=== PATIENT | female | born 1955 | race Caucasian/White ===

== ENCOUNTER 2017-01-27 07:34 | Emergency (ER) | payer BC, OTHER ==
[2017-01-27 07:52] VITALS: BP 137/81
[2017-01-27] MEDS ORDERED: Tetracaine HCl/PF 0.5% 4 ML Bottle EYELF ONE (08:07)
[2017-01-27] MEDS ORDERED: Fluorescein 1 MG Ophth Strip EYELF ONE (08:07)
[2017-01-27] MEDS ORDERED: Balanced Salt Solution Ophth Irrig 30 ML Bottle EYELF ONE (08:07)
--- NOTE | 2017-01-27 08:09 | EDM.PDOC ---
ED HPI GENERAL MEDICAL PROBLEM - General Chief Complaint: Eye Problems Stated Complaint: LEFT EYE COMPLAINT Time Seen by Provider: 01/27/17 08:04 Source of Information: Reports: Patient History Limitations: Reports: No Limitations - History of Present Illness INITIAL COMMENTS - FREE TEXT/NARRATIVE: 61 yo white female Onset Date: 01/26/17 Onset Time: 12:00 Duration: Day(s):, Getting Worse Quality: Reports: Burning Severity: Moderate Improves with: Reports: Cold Therapy Context: Reports: Activity Associated Symptoms: Reports: No Other Symptoms Left Eye Pain Score (Numeric/FACES): 3 - Related Data Allergies Allergy/AdvReac Type Severity Reaction Status Date / Time No Known Allergies Allergy Verified 01/27/17 07:55 Home Meds: Home Meds Levothyroxine 75 mcg PO DAILY 01/27/17 [History] Metoprolol Succinate [Toprol XL] 50 mcg PO DAILY 01/27/17 [History] Simvastatin [Simvastatin] 20 mg PO DAILY 01/27/17 [History] Past Medical History Cardiovascular History: Reports: High Cholesterol, Hypertension Musculoskeletal History: Reports: Fracture Endocrine/Metabolic History: Reports: Hypothyroidism - Past Surgical History Musculoskeletal Surgical History: Reports: Other (See Below) Other Musculoskeletal Surgeries/Procedures:: Fx ankle and femur Oncologic Surgical History: Reports: Biopsy of Breast, Lumpectomy Social & Family History - Tobacco Use Smoking Status *Q: Never Smoker - Caffeine Use Caffeine Use: Reports: Coffee, Soda - Recreational Drug Use Recreational Drug Use: No ED ROS GENERAL - Review of Systems Review Of Systems: See Below Constitutional: Reports: No Symptoms HEENT: Reports: Eye Pain (left w/ scratch sensation) Respiratory: Reports: No Symptoms Cardiovascular: Reports: No Symptoms Endocrine: Reports: No Symptoms GI/Abdominal: Reports: No Symptoms : Reports: No Symptoms Musculoskeletal: Reports: No Symptoms Skin: Reports: No Symptoms Neurological: Reports: No Symptoms Psychiatric: Reports: No Symptoms Hematologic/Lymphatic: Reports: No Symptoms Immunologic: Reports: No Symptoms ED EXAM GENERAL W FULL EYE - Physical Exam Exam: See Below Exam Limited By: No Limitations General Appearance: Alert Eye Exam: Left Eye: Corneal Abrasion (at 6'oclock) Eyelids: Bilateral: Normal Appearance Conjunctiva & Sclera: Bilateral: Normal Appearance Cornea Exam: Left: Corneal Abrasion (at 6'oclock), Examined with Flourescein Extraocular Movements: Bilateral: Intact Pupils: Normal Accommodation Pupillary Size: Bilateral: 4 mm Pupillary Reaction: Bilateral: Brisk Anterior Chamber: Bilateral: Normal Appearance Posterior Chamber: Bilateral: Normal Funduscopic Ears: Normal External Exam Nose: Normal Inspection Throat/Mouth: Normal Inspection Head: Atraumatic Neck: Normal Inspection Respiratory/Chest: No Respiratory Distress Cardiovascular: Normal Peripheral Pulses GI/Abdominal: Normal Bowel Sounds Extremities: Normal Inspection Neurological: Alert, Oriented, CN II-XII Intact Psychiatric: Normal Affect, Normal Mood Skin Exam: Warm Lymphatic: No Adenopathy ED EYE w/ Add Procedure - Eye Procedure Alcaine Drops Administered: Yes Eye Irrigated w/ Saline (ccs): 5 Course - Vital Signs Last Recorded V/S: Last Vital Signs Temp 36.1 C 01/27/17 07:51 Pulse 62 01/27/17 07:51 Resp 16 01/27/17 07:51 BP 137/81 01/27/17 07:51 Pulse Ox 98 01/27/17 07:51 Departure - Departure Time of Disposition: 08:21 Disposition: Home, Self-Care 01 Condition: Good Clinical Impression: Corneal abrasion Qualifiers: Encounter type: initial encounter Laterality: left Qualified Code(s): S05.02XA - Injury of conjunctiva and corneal abrasion without foreign body, left eye, initial encounter - Discharge Information Forms: ED Department Discharge Additional Instructions: Use the antibiotic eye drops as prescribed QID ( Garamycin opthal soln) 5cc
== END 2017-01-27 08:35 | disposition home or self-care (01) ==
LOC: DL.ED 07:34
DX: S05.02XA Injury of conjunctiva and corneal abrasion without foreign body, left eye, initial encounter (principal); I10 Essential (primary) hypertension; E78.00 Pure hypercholesterolemia, unspecified; E03.9 Hypothyroidism, unspecified; Z98.890 Other specified postprocedural states; Z79.899 Other long term (current) drug therapy; X58.XXXA Exposure to other specified factors, initial encounter
CPT/HCPCS: 99282; A9270

== ENCOUNTER 2020-08-28 15:07 | Observation (INO) | payer MEDICARE, OTHER ==
--- NOTE | 2020-08-28 15:43 | CT ---
PROCEDURE INFORMATION: Exam: CT Head Without Contrast Exam date and time: 08/28/2020 3:32 PM Age: 64 years old Clinical indication: Other: Neuro changes TECHNIQUE: Imaging protocol: Computed tomography of the head without contrast. Radiation optimization: All CT scans at this facility use at least one of these dose optimization techniques: automated exposure control; mA and/or kV adjustment per patient size (includes targeted exams where dose is matched to clinical indication); or iterative reconstruction. Other technique: STROKE PROTOCOL was implemented. COMPARISON: No relevant prior studies available. FINDINGS: Brain: There is moderate amount of scattered areas of hypoattenuation of the supratentorial white matter, most likely secondary to microvascular ischemic changes. No acute intracranial hemorrhage. Cerebral ventricles: No ventriculomegaly. Bones/joints: Unremarkable. No acute fracture. Paranasal sinuses: Visualized sinuses are unremarkable. No fluid levels. Mastoid air cells: Visualized mastoid air cells are well aerated. Soft tissues: Unremarkable. IMPRESSION: No acute intracranial process. ASSESSMENT: ASPECTS (Karyn Stroke Program Early CT Score) is 10.
[2020-08-28 15:50] LABS: ANION GAP 13.6 mEq/L (7-13); CHLORIDE,CL 102 mmol/L (98-107); SODIUM,NA 142 mmol/L (136-145)
--- NOTE | 2020-08-28 15:50 | EDM.PDOC ---
ED HPI GENERAL MEDICAL PROBLEM - General Chief Complaint: Neuro Symptoms/Deficits Stated Complaint: LOSING MEMORY STARTING TODAY, HEADACHE Time Seen by Provider: 08/28/20 15:24 Source of Information: Reports: Patient, RN, RN Notes Reviewed History Limitations: Reports: No Limitations - History of Present Illness INITIAL COMMENTS - FREE TEXT/NARRATIVE: Patient is a 64-year-old female who presents TO ER with complaint loss of memory. Last known well was 12:30 today. Patient states she went to [employer] and remembers up until eating at [employer] at 12:30. States she lost approximately 3 hours today. States she was having difficulty with simple processes today. States she is feeling much better now. She has never had COVID and she had vaccine #1 on 07/20/20. She has been i gregg at [facility] for c-spine discs "slipping". On Saturday she had diarrhea. Onset: Today Duration: Getting Worse Location: Reports: Generalized Severity: Moderate Improves with: Reports: None Worsens with: Reports: None Associated Symptoms: Reports: No Other Symptoms - Related Data Allergies Allergy/AdvReac Type Severity Reaction Status Date / Time No Known Allergies Allergy Verified 08/28/20 15:25 Home Meds: Home Meds Levothyroxine 75 mcg PO DAILY 01/27/17 [History] Metoprolol Succinate [Toprol XL] 50 mg PO DAILY 01/27/17 [History] Simvastatin 20 mg PO DAILY 01/27/17 [History] Past Medical History Cardiovascular History: Reports: High Cholesterol, Hypertension Musculoskeletal History: Reports: Fracture (left femur age 10yrs), Other (See Below) (scoliosis) Endocrine/Metabolic History: Reports: Hypothyroidism - Past Surgical History Endocrine Surgical History: Reports: Thyroidectomy Musculoskeletal Surgical History: Reports: Other (See Below) Other Musculoskeletal Surgeries/Procedures:: Fx ankle and femur Oncologic Surgical History: Reports: Biopsy of Breast, Lumpectomy Social & Family History - Family History Family Medical History: No Pertinent Family History - Caffeine Use Caffeine Use: Reports: Coffee, Soda - Living Situation & Occupation Living situation: Reports: with Family ED ROS GENERAL - Review of Systems Review Of Systems: Comprehensive ROS is negative, except as noted in HPI. ED EXAM, GENERAL - Physical Exam Exam: See Below Exam Limited By: No Limitations General Appearance: Anxious Eye Exam: Bilateral Eye: EOMI, Normal Inspection, PERRL Ears: Normal External Exam, Normal Canal, Hearing Grossly Normal, Normal TMs Nose: Normal Inspection, Normal Mucosa, No Blood Throat/Mouth: Normal Inspection, Normal Lips, Normal Teeth, Normal Gums, Normal Oropharynx, Normal Voice, No Airway Compromise Head: Atraumatic, Normocephalic Neck: Normal Inspection, Supple, Non-Tender, Full Range of Motion Respiratory/Chest: No Respiratory Distress, Lungs Clear, Normal Breath Sounds, No Accessory Muscle Use, Chest Non-Tender Cardiovascular: Normal Peripheral Pulses, Regular Rate, Rhythm, No Edema, No Gallop, No JVD, No Murmur, No Rub GI/Abdominal: Normal Bowel Sounds, Soft, Non-Tender, No Organomegaly, No Distention, No Abnormal Bruit, No Mass (Female) Exam: Deferred Rectal (Female) Exam: Deferred Back Exam: Normal Inspection, Full Range of Motion, NT Extremities: Normal Inspection, Normal Range of Motion, Non-Tender, Normal Capillary Refill, No Pedal Edema Neurological: Alert, Oriented, CN II-XII Intact, Normal Cognition, Normal Gait, Normal Reflexes, No Motor/Sensory Deficits Psychiatric: Anxious Skin Exam: Warm, Dry, Intact, Normal Color, No Rash Lymphatic: No Adenopathy Course - Vital Signs Last Recorded V/S: Last Vital Signs Temp 97.2 F 08/28/20 15:16 Pulse 68 08/28/20 15:16 Resp 16 08/28/20 15:16 BP 186/93 H 08/28/20 15:20 Pulse Ox 98 08/28/20 15:16 - Orders/Labs/Meds Orders: Active Orders 24 hr Category Date Time Status CULTURE URINE [RM] Stat Lab 08/28/20 15:41 Received Labs: Laboratory Tests 08/28/20 08/28/20 08/28/20 Range/Units 15:17 15:18 15:18 WBC 8.2 (5.0-10.0) 10^3/uL RBC 4.87 (4.2-5.4) 10^6/uL Hgb 14.5 (12.0-16.0) g/dL Hct 41.9 (37.0-47.0) % MCV 86.0 (80-100) fL MCH 29.8 (27.0-34.0) pg MCHC 34.6 (33.0-35.0) g/dL Plt Count 283 (150-450) 10^3/uL Neut % (Auto) 62.9 (42.2-75.2) % Lymph % (Auto) 24.6 (20.5-50.1) % [place] % (Auto) 8.9 H (2-8) % Eos % (Auto) 2.9 (1.0-3.0) % Baso % (Auto) 0.7 (0.0-1.0) % PT (9.0-12.0) SEC INR (0.9-1.2) Sodium 142 (136-145) mmol/L Potassium 3.6 (3.5-5.1) mmol/L Chloride 102 (98-107) mmol/L Carbon Dioxide 30 (21-32) mmol/L Anion Gap 13.6 H (7-13) mEq/L BUN 14 (7-18) mg/dL Creatinine 0.82 (0.55-1.02) mg/dL Est Cr Clr Drug Dosing 65.63 mL/min Estimated GFR (MDRD) > 60 BUN/Creatinine Ratio 17.1 (No establ ref range) Glucose 93 (74-99) mg/dL POC Glucose 98 (70-105) mg/dl Calcium 9.1 (8.5-10.1) mg/dL Total Bilirubin 0.5 (0.2-1.0) mg/dL AST 22 (15-37) U/L ALT 42 (14-59) U/L Alkaline Phosphatase 117 H (46-116) U/L Troponin I < 0.017 (0.000-0.056) ng/mL Total Protein 7.4 (6.4-8.2) g/dL Albumin 3.8 (3.4-5.0) g/dL Globulin 3.6 Albumin/Globulin Ratio 1.1 Urine Color (YELLOW) Urine Appearance (CLEAR) Urine pH (5.0-9.0) Ur Specific [place] (1.005-1.030) Urine Protein (NEGATIVE) Urine Glucose (UA) (NEGATIVE) Urine Ketones (NEGATIVE) Urine Occult Blood (NEGATIVE) Urine Nitrite (NEGATIVE) Urine Bilirubin (NEGATIVE) Urine Urobilinogen (0.2-1.0) mg/dL Ur Leukocyte Esterase (NEGATIVE) Urine RBC /HPF Urine WBC (0-5/HPF) /HPF Ur Epithelial Cells (NOT SEEN) /HPF Urine Bacteria (0-FEW/HPF) /HPF Urine Mucus (NOT SEEN) /LPF Urine Opiates Screen (NEGATIVE) Ur Oxycodone Screen (NEGATIVE) Urine Methadone Screen (NEGATIVE) Ur Barbiturates Screen (NEGATIVE) U Tricyclic Antidepress (NEGATIVE) Ur Phencyclidine Scrn (NEGATIVE) Ur Amphetamine Screen (NEGATIVE) U Methamphetamines Scrn (NEGATIVE) Urine MDMA Screen (NEGATIVE) U Benzodiazepines Scrn (NEGATIVE) Urine Cocaine Screen (NEGATIVE) U Marijuana (THC) Screen (NEGATIVE) Ethyl Alcohol < 3 (0) mg/dL SARS-CoV-2 RNA (ILIA) (NEGATIVE) 08/28/20 08/28/20 08/28/20 Range/Units 15:18 15:41 15:41 WBC (5.0-10.0) 10^3/uL RBC (4.2-5.4) 10^6/uL Hgb (12.0-16.0) g/dL Hct (37.0-47.0) % MCV (80-100) fL MCH (27.0-34.0) pg MCHC (33.0-35.0) g/dL Plt Count (150-450) 10^3/uL Neut % (Auto) (42.2-75.2) % Lymph % (Auto) (20.5-50.1) % [place] % (Auto) (2-8) % Eos % (Auto) (1.0-3.0) % Baso % (Auto) (0.0-1.0) % PT 10.2 (9.0-12.0) SEC INR 1.1 (0.9-1.2) Sodium (136-145) mmol/L Potassium (3.5-5.1) mmol/L Chloride (98-107) mmol/L Carbon Dioxide (21-32) mmol/L Anion Gap (7-13) mEq/L BUN (7-18) mg/dL Creatinine (0.55-1.02) mg/dL Est Cr Clr Drug Dosing mL/min Estimated GFR (MDRD) BUN/Creatinine Ratio (No establ ref range) Glucose (74-99) mg/dL POC Glucose (70-105) mg/dl Calcium (8.5-10.1) mg/dL Total Bilirubin (0.2-1.0) mg/dL AST (15-37) U/L ALT (14-59) U/L Alkaline Phosphatase (46-116) U/L Troponin I (0.000-0.056) ng/mL Total Protein (6.4-8.2) g/dL Albumin (3.4-5.0) g/dL Globulin Albumin/Globulin Ratio Urine Color Yellow (YELLOW) Urine Appearance Slightly cloudy (CLEAR) Urine pH 7.0 (5.0-9.0) Ur Specific [place] 1.020 (1.005-1.030) Urine Protein Negative (NEGATIVE) Urine Glucose (UA) Negative (NEGATIVE) Urine Ketones Negative (NEGATIVE) Urine Occult Blood Trace-intact H (NEGATIVE) Urine Nitrite Negative (NEGATIVE) Urine Bilirubin Negative (NEGATIVE) Urine Urobilinogen 0.2 (0.2-1.0) mg/dL Ur Leukocyte Esterase Trace H (NEGATIVE) Urine RBC 5-10 H /HPF Urine WBC 5-10 H (0-5/HPF) /HPF Ur Epithelial Cells Few (NOT SEEN) /HPF Urine Bacteria Few (0-FEW/HPF) /HPF Urine Mucus Few H (NOT SEEN) /LPF Urine Opiates Screen Negative (NEGATIVE) Ur Oxycodone Screen Negative (NEGATIVE) Urine Methadone Screen Negative (NEGATIVE) Ur Barbiturates Screen Negative (NEGATIVE) U Tricyclic Antidepress Negative (NEGATIVE) Ur Phencyclidine Scrn Negative (NEGATIVE) Ur Amphetamine Screen Negative (NEGATIVE) U Methamphetamines Scrn Negative (NEGATIVE) Urine MDMA Screen Negative (NEGATIVE) U Benzodiazepines Scrn Negative (NEGATIVE) Urine Cocaine Screen Negative (NEGATIVE) U Marijuana (THC) Screen Negative (NEGATIVE) Ethyl Alcohol (0) mg/dL SARS-CoV-2 RNA (ILIA) (NEGATIVE) 08/28/20 08/28/20 Range/Units 15:41 15:44 WBC (5.0-10.0) 10^3/uL RBC (4.2-5.4) 10^6/uL Hgb (12.0-16.0) g/dL Hct (37.0-47.0) % MCV (80-100) fL MCH (27.0-34.0) pg MCHC (33.0-35.0) g/dL Plt Count (150-450) 10^3/uL Neut % (Auto) (42.2-75.2) % Lymph % (Auto) (20.5-50.1) % [place] % (Auto) (2-8) % Eos % (Auto) (1.0-3.0) % Baso % (Auto) (0.0-1.0) % PT (9.0-12.0) SEC INR (0.9-1.2) Sodium (136-145) mmol/L Potassium (3.5-5.1) mmol/L Chloride (98-107) mmol/L Carbon Dioxide (21-32) mmol/L Anion Gap (7-13) mEq/L BUN (7-18) mg/dL Creatinine (0.55-1.02) mg/dL Est Cr Clr Drug Dosing mL/min Estimated GFR (MDRD) BUN/Creatinine Ratio (No establ ref range) Glucose (74-99) mg/dL POC Glucose 99 (70-105) mg/dl Calcium (8.5-10.1) mg/dL Total Bilirubin (0.2-1.0) mg/dL AST (15-37) U/L ALT (14-59) U/L Alkaline Phosphatase (46-116) U/L Troponin I (0.000-0.056) ng/mL Total Protein (6.4-8.2) g/dL Albumin (3.4-5.0) g/dL Globulin Albumin/Globulin Ratio Urine Color (YELLOW) Urine Appearance (CLEAR) Urine pH (5.0-9.0) Ur Specific [employer] [place] (1.005-1.030) Urine Protein (NEGATIVE) Urine Glucose (UA) (NEGATIVE) Urine Ketones (NEGATIVE) Urine Occult Blood (NEGATIVE) Urine Nitrite (NEGATIVE) Urine Bilirubin (NEGATIVE) Urine Urobilinogen (0.2-1.0) mg/dL Ur Leukocyte Esterase (NEGATIVE) Urine RBC /HPF Urine WBC (0-5/HPF) /HPF Ur Epithelial Cells (NOT SEEN) /HPF Urine Bacteria (0-FEW/HPF) /HPF Urine Mucus (NOT SEEN) /LPF Urine Opiates Screen (NEGATIVE) Ur Oxycodone Screen (NEGATIVE) Urine Methadone Screen (NEGATIVE) Ur Barbiturates Screen (NEGATIVE) U Tricyclic Antidepress (NEGATIVE) Ur Phencyclidine Scrn (NEGATIVE) Ur Amphetamine Screen (NEGATIVE) U Methamphetamines Scrn (NEGATIVE) Urine MDMA Screen (NEGATIVE) U Benzodiazepines Scrn (NEGATIVE) Urine Cocaine Screen (NEGATIVE) U Marijuana (THC) Screen (NEGATIVE) Ethyl Alcohol (0) mg/dL SARS-CoV-2 RNA (ILIA) Negative (NEGATIVE) Meds: Medications Discontinued Medications Generic Name Dose Route Start Last Admin Trade Name Candelario PRN Reason Stop Dose Admin Labetalol HCl 10 mg 08/28/20 17:01 08/28/20 17:07 Normodyne IVPUSH 08/28/20 17:02 10 mg ONETIME ONE Administration - Radiology Interpretation Free Text/Narrative:: CT Head: CT Head: PROCEDURE INFORMATION: Exam: CT Head Without Contrast Exam date and time: 08/28/2020 3:32 PM Age: 64 years old Clinical indication: Other: Neuro changes TECHNIQUE: Imaging protocol: Computed tomography of the head without contrast. Radiation optimization: All CT scans at this facility use at least one of these dose optimization techniques: automated exposure control; mA and/or kV adjustment per patient size (includes targeted exams where dose is matched to clinical indication); or iterative reconstruction. Other technique: STROKE PROTOCOL was implemented. COMPARISON: No relevant prior studies available. FINDINGS: Brain: There is moderate amount of scattered areas of hypoattenuation of the supratentorial white matter, most likely secondary to microvascular ischemic changes. No acute intracranial hemorrhage. Cerebral ventricles: No ventriculomegaly. Bones/joints: Unremarkable. No acute fracture. Paranasal sinuses: Visualized sinuses are unremarkable. No fluid levels. Mastoid air cells: Visualized mastoid air cells are well aerated. Soft tissues: Unremarkable. IMPRESSION: No acute intracranial process. ASSESSMENT: ASPECTS (Karyn Stroke Program Early CT Score) is 10. See rad report. - Re-Assessments/Exams Free Text/Narrative Re-Assessment/Exam: 08/28/20 18:14 Discussed patient case with Dr. Howe, Neurologist at [facility], who states she feels this is Global or Hypertension encephalopathy. She states the patient can be evaluated in [place] and have an MRI tomorrow. Discussed patient case with Dr. Fernandez as well as conversation with Dr. Howe. He agreed to accept the patient for observation admission. Departure - Departure Time of Disposition: 18:15 Disposition: Refer to Observation Condition: Fair Clinical Impression: Global amnesia - Discharge Information *PRESCRIPTION DRUG MONITORING PROGRAM REVIEWED*: No *COPY OF PRESCRIPTION DRUG MONITORING REPORT IN PATIENT RANI: No Sepsis Event Note (ED) - Evaluation Sepsis Screening Result: No Definite Risk - Focused Exam Vital Signs: Vital Signs Temp Pulse Resp BP Pulse Ox 08/28/20 15:20 186/93 H 08/28/20 15:16 97.2 F 68 16 191/92 H 98 - My Orders Last 24 Hours: My Active Orders 08/28/20 15:41 CULTURE URINE [RM] Stat - Assessment/Plan Last 24 Hours: My Active Orders 08/28/20 15:41 CULTURE URINE [RM] Stat
[2020-08-28] MEDS ORDERED: Labetalol 20 MG/4 ML Syringe IVPUSH ONE (17:01)
--- NOTE | 2020-08-28 18:30 | PCM.HP ---
H&P History of Present Illness - General Date of Service: 08/28/20 Admit Problem/Dx: Admission Diagnosis/Problem Admission Diagnosis/Problem Hypertension complications Source of Information: Patient, Family History Limitations: Reports: No Limitations - History of Present Illness Initial Comments - Free Text/Narative: Patient is a 64-year-old female with a medical history of hypothyroidism, hypertension, dyslipidemia, recent cervical anterolisthesis who presented with memory loss. Patient reports that she was her usual self this morning when she went to quaker, letter Bible study, and played the organ. At around 12:30 PM she ate at [employer] before going home. Later this afternoon, patient relates that she could not remember about 3 hours of heart the statin from after she left [employer]. She also had difficulty with comprehending what she was reading or seeing well even with her glasses. She complained of having a headache which is achy and parieto-occipital in location. She thinks the headache was due to receiving physical therapy for for her neck pain. She now feels well still cannot account for about 3 hours of today. She reported having 2 episodes of loose stools on Saturday which she thought was due to something she ate. In the ER, patient was found to have elevated blood pressure of 191/92 with a heart rate of 68. Other vital signs were normal. She was given labetalol for the blood pressure slowly decreased. Labs were significant for anion gap of 13.4, trace leukocyte esterase with few bacteria in urinalysis. CT of the brain had no acute findings. - Related Data Allergies/Adverse Reactions: Allergies Allergy/AdvReac Type Severity Reaction Status Date / Time No Known Allergies Allergy Verified 08/28/20 15:25 Home Medications: Home Meds Levothyroxine 75 mcg PO DAILY 01/27/17 [History] Metoprolol Succinate [Toprol XL] 50 mg PO DAILY 01/27/17 [History] Simvastatin 20 mg PO DAILY 01/27/17 [History] Past Medical History Cardiovascular History: Reports: High Cholesterol, Hypertension Musculoskeletal History: Reports: Fracture, Other (See Below) Endocrine/Metabolic History: Reports: Hypothyroidism - Past Surgical History Endocrine Surgical History: Reports: Thyroidectomy Social & Family History - Family History Family Medical History: No Pertinent Family History - Tobacco Use Used Tobacco, but Quit: No - Caffeine Use Caffeine Use: Reports: Coffee - Recreational Drug Use Recreational Drug Use: No - Living Situation & Occupation Living situation: Reports: with Family H&P Review of Systems - Review of Systems: Review Of Systems: See Below General: Reports: No Symptoms HEENT: Reports: Headaches, Visual Changes Pulmonary: Reports: No Symptoms Cardiovascular: Reports: No Symptoms Gastrointestinal: Reports: No Symptoms Genitourinary: Reports: No Symptoms Musculoskeletal: Reports: No Symptoms Skin: Reports: No Symptoms Psychiatric: Reports: Confusion Neurological: Reports: Confusion, Headache. Denies: Dizziness Hematologic/Lymphatic: Reports: No Symptoms Immunologic: Reports: No Symptoms Exam - Exam Exam: See Below - Vital Signs Vital Signs: Last Vital Signs Temp 97.2 F 08/28/20 15:16 Pulse 68 08/28/20 15:16 Resp 16 08/28/20 15:16 BP 186/93 H 08/28/20 15:20 Pulse Ox 98 08/28/20 15:16 Weight: 180 lb - Exam General: Alert, Oriented, 4 HEENT: PERRLA, Hearing Intact, Mucosa Moist & [place], Nares Patent, Normal Nasal Septum, Posterior Pharynx Clear, Conjunctiva Clear, EOMI, EACs Clear, TMs Clear Neck: Supple, Trachea Midline, 2 Lungs: Clear to Auscultation, Normal Respiratory Effort Cardiovascular: Regular Rate, Regular Rhythm GI/Abdominal Exam: Normal Bowel Sounds, Soft, Non-Tender, No Organomegaly, No Distention, No Abnormal Bruit, No Mass, Pelvis Stable Back Exam: Normal Inspection, Full Range of Motion, NT Extremities: Normal Inspection, Normal Range of Motion, Non-Tender, No Pedal Edema, Normal Capillary Refill Skin: Warm, Dry, Intact Neurological: Cranial Nerves Intact, Reflexes Equal Bilateral Neuro Extensive - Mental Status: Alert, Oriented x3, Normal Mood/Affect, Normal Cognition Neuro Extensive - Motor, Sensory, Reflexes: CN II-XII Intact, Normal Gait, Normal Reflexes Psychiatric: Alert, Normal Affect, Normal Mood - Patient Data Lab Results Last 24 hrs: Laboratory Results - last 24 hr 08/28/20 08/28/20 08/28/20 Range/Units 15:17 15:18 15:18 WBC 8.2 (5.0-10.0) 10^3/uL RBC 4.87 (4.2-5.4) 10^6/uL Hgb 14.5 (12.0-16.0) g/dL Hct 41.9 (37.0-47.0) % MCV 86.0 (80-100) fL MCH 29.8 (27.0-34.0) pg MCHC 34.6 (33.0-35.0) g/dL Plt Count 283 (150-450) 10^3/uL Neut % (Auto) 62.9 (42.2-75.2) % Lymph % (Auto) 24.6 (20.5-50.1) % [place] % (Auto) 8.9 H (2-8) % Eos % (Auto) 2.9 (1.0-3.0) % Baso % (Auto) 0.7 (0.0-1.0) % PT (9.0-12.0) SEC INR (0.9-1.2) Sodium 142 (136-145) mmol/L Potassium 3.6 (3.5-5.1) mmol/L Chloride 102 (98-107) mmol/L Carbon Dioxide 30 (21-32) mmol/L Anion Gap 13.6 H (7-13) mEq/L BUN 14 (7-18) mg/dL Creatinine 0.82 (0.55-1.02) mg/dL Est Cr Clr Drug Dosing 65.63 mL/min Estimated GFR (MDRD) > 60 BUN/Creatinine Ratio 17.1 (No establ ref range) Glucose 93 (74-99) mg/dL POC Glucose 98 (70-105) mg/dl Calcium 9.1 (8.5-10.1) mg/dL Total Bilirubin 0.5 (0.2-1.0) mg/dL AST 22 (15-37) U/L ALT 42 (14-59) U/L Alkaline Phosphatase 117 H (46-116) U/L Troponin I < 0.017 (0.000-0.056) ng/mL Total Protein 7.4 (6.4-8.2) g/dL Albumin 3.8 (3.4-5.0) g/dL Globulin 3.6 Albumin/Globulin Ratio 1.1 Urine Color (YELLOW) Urine Appearance (CLEAR) Urine pH (5.0-9.0) Ur Specific [place] (1.005-1.030) Urine Protein (NEGATIVE) Urine Glucose (UA) (NEGATIVE) Urine Ketones (NEGATIVE) Urine Occult Blood (NEGATIVE) Urine Nitrite (NEGATIVE) Urine Bilirubin (NEGATIVE) Urine Urobilinogen (0.2-1.0) mg/dL Ur Leukocyte Esterase (NEGATIVE) Urine RBC /HPF Urine WBC (0-5/HPF) /HPF Ur Epithelial Cells (NOT SEEN) /HPF Urine Bacteria (0-FEW/HPF) /HPF Urine Mucus (NOT SEEN) /LPF Urine Opiates Screen (NEGATIVE) Ur Oxycodone Screen (NEGATIVE) Urine Methadone Screen (NEGATIVE) Ur Barbiturates Screen (NEGATIVE) U Tricyclic Antidepress (NEGATIVE) Ur Phencyclidine Scrn (NEGATIVE) Ur Amphetamine Screen (NEGATIVE) U Methamphetamines Scrn (NEGATIVE) Urine MDMA Screen (NEGATIVE) U Benzodiazepines Scrn (NEGATIVE) Urine Cocaine Screen (NEGATIVE) U Marijuana (THC) Screen (NEGATIVE) Ethyl Alcohol < 3 (0) mg/dL SARS-CoV-2 RNA (ILIA) (NEGATIVE) 08/28/20 08/28/20 08/28/20 Range/Units 15:18 15:41 15:41 WBC (5.0-10.0) 10^3/uL RBC (4.2-5.4) 10^6/uL Hgb (12.0-16.0) g/dL Hct (37.0-47.0) % MCV (80-100) fL MCH (27.0-34.0) pg MCHC (33.0-35.0) g/dL Plt Count (150-450) 10^3/uL Neut % (Auto) (42.2-75.2) % Lymph % (Auto) (20.5-50.1) % [place] % (Auto) (2-8) % Eos % (Auto) (1.0-3.0) % Baso % (Auto) (0.0-1.0) % PT 10.2 (9.0-12.0) SEC INR 1.1 (0.9-1.2) Sodium (136-145) mmol/L Potassium (3.5-5.1) mmol/L Chloride (98-107) mmol/L Carbon Dioxide (21-32) mmol/L Anion Gap (7-13) mEq/L BUN (7-18) mg/dL Creatinine (0.55-1.02) mg/dL Est Cr Clr Drug Dosing mL/min Estimated GFR (MDRD) BUN/Creatinine Ratio (No establ ref range) Glucose (74-99) mg/dL POC Glucose (70-105) mg/dl Calcium (8.5-10.1) mg/dL Total Bilirubin (0.2-1.0) mg/dL AST (15-37) U/L ALT (14-59) U/L Alkaline Phosphatase (46-116) U/L Troponin I (0.000-0.056) ng/mL Total Protein (6.4-8.2) g/dL Albumin (3.4-5.0) g/dL Globulin Albumin/Globulin Ratio Urine Color Yellow (YELLOW) Urine Appearance Slightly cloudy (CLEAR) Urine pH 7.0 (5.0-9.0) Ur Specific [place] 1.020 (1.005-1.030) Urine Protein Negative (NEGATIVE) Urine Glucose (UA) Negative (NEGATIVE) Urine Ketones Negative (NEGATIVE) Urine Occult Blood Trace-intact H (NEGATIVE) Urine Nitrite Negative (NEGATIVE) Urine Bilirubin Negative (NEGATIVE) Urine Urobilinogen 0.2 (0.2-1.0) mg/dL Ur Leukocyte Esterase Trace H (NEGATIVE) Urine RBC 5-10 H /HPF Urine WBC 5-10 H (0-5/HPF) /HPF Ur Epithelial Cells Few (NOT SEEN) /HPF Urine Bacteria Few (0-FEW/HPF) /HPF Urine Mucus Few H (NOT SEEN) /LPF Urine Opiates Screen Negative (NEGATIVE) Ur Oxycodone Screen Negative (NEGATIVE) Urine Methadone Screen Negative (NEGATIVE) Ur Barbiturates Screen Negative (NEGATIVE) U Tricyclic Antidepress Negative (NEGATIVE) Ur Phencyclidine Scrn Negative (NEGATIVE) Ur Amphetamine Screen Negative (NEGATIVE) U Methamphetamines Scrn Negative (NEGATIVE) Urine MDMA Screen Negative (NEGATIVE) U Benzodiazepines Scrn Negative (NEGATIVE) Urine Cocaine Screen Negative (NEGATIVE) U Marijuana (THC) Screen Negative (NEGATIVE) Ethyl Alcohol (0) mg/dL SARS-CoV-2 RNA (ILIA) (NEGATIVE) 08/28/20 08/28/20 Range/Units 15:41 15:44 WBC (5.0-10.0) 10^3/uL RBC (4.2-5.4) 10^6/uL Hgb (12.0-16.0) g/dL Hct (37.0-47.0) % MCV (80-100) fL MCH (27.0-34.0) pg MCHC (33.0-35.0) g/dL Plt Count (150-450) 10^3/uL Neut % (Auto) (42.2-75.2) % Lymph % (Auto) (20.5-50.1) % [place] % (Auto) (2-8) % Eos % (Auto) (1.0-3.0) % Baso % (Auto) (0.0-1.0) % PT (9.0-12.0) SEC INR (0.9-1.2) Sodium (136-145) mmol/L Potassium (3.5-5.1) mmol/L Chloride (98-107) mmol/L Carbon Dioxide (21-32) mmol/L Anion Gap (7-13) mEq/L BUN (7-18) mg/dL Creatinine (0.55-1.02) mg/dL Est Cr Clr Drug Dosing mL/min Estimated GFR (MDRD) BUN/Creatinine Ratio (No establ ref range) Glucose (74-99) mg/dL POC Glucose 99 (70-105) mg/dl Calcium (8.5-10.1) mg/dL Total Bilirubin (0.2-1.0) mg/dL AST (15-37) U/L ALT (14-59) U/L Alkaline Phosphatase (46-116) U/L Troponin I (0.000-0.056) ng/mL Total Protein (6.4-8.2) g/dL Albumin (3.4-5.0) g/dL Globulin Albumin/Globulin Ratio Urine Color (YELLOW) Urine Appearance (CLEAR) Urine pH (5.0-9.0) Ur Specific [place] (1.005-1.030) Urine Protein (NEGATIVE) Urine Glucose (UA) (NEGATIVE) Urine Ketones (NEGATIVE) Urine Occult Blood (NEGATIVE) Urine Nitrite (NEGATIVE) Urine Bilirubin (NEGATIVE) Urine Urobilinogen (0.2-1.0) mg/dL Ur Leukocyte Esterase (NEGATIVE) Urine RBC /HPF Urine WBC (0-5/HPF) /HPF Ur Epithelial Cells (NOT SEEN) /HPF Urine Bacteria (0-FEW/HPF) /HPF Urine Mucus (NOT SEEN) /LPF Urine Opiates Screen (NEGATIVE) Ur Oxycodone Screen (NEGATIVE) Urine Methadone Screen (NEGATIVE) Ur Barbiturates Screen (NEGATIVE) U Tricyclic Antidepress (NEGATIVE) Ur Phencyclidine Scrn (NEGATIVE) Ur Amphetamine Screen (NEGATIVE) U Methamphetamines Scrn (NEGATIVE) Urine MDMA Screen (NEGATIVE) U Benzodiazepines Scrn (NEGATIVE) Urine Cocaine Screen (NEGATIVE) U Marijuana (THC) Screen (NEGATIVE) Ethyl Alcohol (0) mg/dL SARS-CoV-2 RNA (ILIA) Negative (NEGATIVE) Result Diagrams: 08/28/20 15:18 08/28/20 15:18 Problem List Initiated/Reviewed/Updated: Yes Orders Last 24hrs: Active Orders 24 hr Category Date Time Status Admission Diagnosis [ADT] Routine ADT 08/28/20 17:51 Ordered Patient Status [ADT] Routine ADT 08/28/20 17:51 Active Cardiac Monitoring [RC] CONTINUOUS Care 08/28/20 18:27 Ordered Oxygen Therapy [RC] PRN Care 08/28/20 18:27 Ordered Up ad [place] [RC] ASDIRECTED Care 08/28/20 18:27 Ordered VTE/DVT Education [RC] PER UNIT ROUTINE Care 08/28/20 18:27 Ordered Vital Signs [RC] Q4H Care 08/28/20 18:27 Ordered Regular Diet [DIET] Diet 08/28/20 Dinner Ordered CULTURE URINE [RM] Stat Lab 08/28/20 15:41 Received Heparin Sodium Med 08/28/20 22:00 Ordered 5,000 units SUBCUT Q8HR Levothyroxine Med 08/29/20 09:00 Ordered 75 mcg PO DAILY Metoprolol Succinate [Toprol XL] Med 08/29/20 09:00 Ordered 50 mg PO DAILY Simvastatin [Simvastatin] Med 08/29/20 09:00 Ordered 20 mg PO DAILY Resuscitation Status Routine Resus Stat 08/28/20 18:27 Ordered Medication Orders Heparin Sodium (Porcine) (Heparin Sodium) 5,000 units SUBCUT Q8HR HANNA Levothyroxine Sodium (Levothyroxine) 75 mcg PO DAILY HANNA Metoprolol Succinate (Toprol Xl) 50 mg PO DAILY HANNA Non-Formulary Medication (Simvastatin [Simvastatin]) 20 mg PO DAILY [facility] Assessment/Plan Comment:: Hypertensive emergency Resume home hypertensive Checked TSH level -within normal limits Close monitoring of blood pressure Acute encephalopathy Differentials include TIA, hypertensive encephalopathy or transient global a mnesia. Likely due to hypertensive emergency. CT head without any acute intracranial findings. Symptoms have resolved. ER PA had called neurology who thought patient likely had hypertensive encepha lopathy. Obtain MRI of brain tomorrow EKG without acute ST changes Telemetry Obtain cardiac echo tomorrow Consider discharge with Zio patch monitor Hyperlipidemia Resume home statin therapy Hypothyroidism Resume home Synthroid Neck pain Cervical DDD X-ray on 08/10 showed grade 1 anterolisthesis of C4 on C5 and C5 on C6 with minimal anterolisthesis of C6 on C7. Severe cervical facet arthritis. Small osteophyte. Mildly narrowed C5 interspace. No fractures. As needed analgesics Asymptomatic bacteriuria No treatment DVT prophylaxis: Heparin CODE STATUS: Full code
[2020-08-28] MEDS: Acetaminophen 325 MG Tab PO PRN (20:08)
[2020-08-28] MEDS: Heparin Sodium 5,000 Units/ML Vial SUBCUT SCH (21:51)
[2020-08-29] MEDS ORDERED: Sodium Chloride 0.9% 10 ML Syringe FLUSH SCH (04:00)
[2020-08-29] MEDS: Acetaminophen 325 MG Tab PO PRN (04:50)
[2020-08-29] MEDS ORDERED: Sodium Chloride 0.9% 10 ML Syringe FLUSH PRN (04:56)
[2020-08-29] MEDS: Heparin Sodium 5,000 Units/ML Vial SUBCUT SCH (05:59)
[2020-08-29 06:21] LABS: ANION GAP 10.6 mEq/L (7-13); CHLORIDE,CL 105 mmol/L (98-107); SODIUM,NA 142 mmol/L (136-145)
[2020-08-29] MEDS: Metoprolol Succinate 50 MG Tab.ER PO SCH ×2 (07:30→08:10)
[2020-08-29] MEDS: Simvastatin 10 MG Tab PO SCH ×2 (07:30→08:10)
[2020-08-29] MEDS: Levothyroxine 75 MCG Tab PO SCH ×2 (07:30→08:10)
[2020-08-29] MEDS ORDERED: Gadobenate Dimeglumine 529 MG/ML 20 ML SDV IVPUSH ONE (07:52)
--- NOTE | 2020-08-29 09:10 | MR ---
PROCEDURE INFORMATION: Exam: MR Head Without and With Contrast Exam date and time: 08/29/2020 7:37 AM Age: 64 years old Clinical indication: Alteration of consciousness; Transient alteration of awareness; Additional info: Transient altered mental status and visual changes TECHNIQUE: Imaging protocol: MR of the head without and with intravenous contrast. Contrast material: MULTIHANCE; Contrast volume: 16 ml; Contrast route: INTRAVENOUS (IV); COMPARISON: CT Head wo Cont 08/28/2020 3:32 PM FINDINGS: Brain: Multiple foci, too numerous to count, of increased T2 and increased FLAIR signal in the periventricular and deep white matter of both cerebral hemispheres and in cel[place]. None of these enhance after the administration gadolinium. No restricted diffusion to suggest acute ischemia. Differential considerations include chronic small vessel ischemic changes demyelination, sequelae chronic inflammation. Cerebral ventricles: Normal. No ventriculomegaly. Bones/joints: Unremarkable. Paranasal sinuses: Fluid in the bilateral maxillary antra. Mastoid air cells: Normal as visualized. No mastoid effusion. Orbital cavity: Unremarkable. Soft tissues: Unremarkable. IMPRESSION: 1. Extensive foci of abnormal white matter without enhancement suggesting either chronic small vessel ischemic change, demyelination, or sequelae of chronic inflammation.
[2020-08-29 11:56] VITALS: BP 138/76; PULSE 67
--- NOTE | 2020-08-30 04:55 | DISCH ---
HISTORY OF PRESENT ILLNESS: This is a 64-year-old female with past medical history of hypothyroidism, hypertension, hyperlipidemia, recent diagnosis of cervical anterolisthesis, who presented with transient memory loss and confusion. As per HPI, the patient had an approximate 3-hour period where she had near-total memory loss of events. This was not witnessed by family. However, when family arrived, she seemed to be speaking slowly. She possibly may have also had difficulty reading although she does wear glasses. She also complained of an occipital headache, and I believe this was bilateral. In the emergency room, she was found to have an elevated blood pressure of 191/92, with a heart rate of 68. All other findings are normal. CT of head was negative. Case was discussed with Neurology who thought that the symptoms might be related to hypertensive encephalopathy. The daughter did find that, despite the patient's claim that she has been compliant with her blood pressure medicines, her Saturday blood pressure medicines were still in the pill box. The patient received IV labetalol in the emergency room with a rapid decrease in her blood pressure. The patient subsequently had an uneventful night in the hospital. In the morning, we found her fully alert and oriented, still unclear about the events of the 3 hours in question, but otherwise asymptomatic. She underwent an MRI which did not show a stroke. Her blood pressure was controlled with no further interventions. In addition to her home medication of Toprol 50 mg once daily, we prescribed 25 mg of hydrochlorothiazide on discharge, and she needs to follow up within 1 week with her PCP for blood pressure check. Part of the stroke workup was also an echo. The results of which are still pending, and the patient will be called with the results as soon as it is available. Telemetry monitoring was unremarkable. The patient was counseled that she may have had hypertensive encephalopathy or possibly a TIA. She was advised to stay out of work for the next 2 to 3 days and as much as possible be supervised by family. MEDICATIONS ON DISCHARGE: Levothyroxine 75 mcg p.o. daily, metoprolol succinate 50 mg once daily, simvastatin 20 mg p.o. once daily, hydrochlorothiazide 25 mg once daily. PHYSICAL EXAMINATION: General: Awake and alert. HEENT: Normal vision, able to read with both eyes independently. Sclerae are normal. Extraocular movements are intact. Mucous membranes are moist. She has no carotid bruits. Lungs: Clear to auscultation bilaterally. Cardiovascular: No murmurs. Rate and rhythm are regular. Abdomen: Soft, nontender, nondistended with positive bowel sounds. She has no edema. Neurologic: She is grossly nonfocal. The patient is euthymic. DISCHARGE DIAGNOSES: Possible hypertensive encephalopathy, possible transient ischemic attack. TIME SPENT: 35 minutes. [facility] /[id number]
== END 2020-08-29 13:44 | disposition home or self-care (01) ==
LOC: DL.ED 15:07 → DL.MS 17:51 → DL.ED 18:08
PROVIDERS: ADMIT Internal Medicine; ATTEND Internal Medicine
DX: I16.1 Hypertensive emergency (principal); G93.40 Encephalopathy, unspecified; R82.71 Bacteriuria; I10 Essential (primary) hypertension; R41.3 Other amnesia; E78.00 Pure hypercholesterolemia, unspecified; E03.9 Hypothyroidism, unspecified; M50.30 Other cervical disc degeneration, unspecified cervical region; M43.12 Spondylolisthesis, cervical region; M25.78 Osteophyte, vertebrae; M47.812 Spondylosis without myelopathy or radiculopathy, cervical region; Z20.822 Contact with and (suspected) exposure to COVID-19; Z79.01 Long term (current) use of anticoagulants; Z86.718 Personal history of other venous thrombosis and embolism; Z87.891 Personal history of nicotine dependence; Z79.890 Hormone replacement therapy; Z79.899 Other long term (current) drug therapy
CPT/HCPCS: 36415; 70450; 70553; 80048; 80053; 80305; 80307; 81001; 82962; 84443; 84484; 85025; 85027; 85610; 87086; 87088; 87635; 93005; 93306; 96372; 96374; 99284; 99285; A9270; A9577; G0378; J1644; J3490; U0002

== ENCOUNTER 2021-09-12 09:17 | Emergency (ER) | payer OTHER ==
[2021-09-12 09:51] VITALS: BP 152/99; PULSE 60
[2021-09-12] MEDS: Metoprolol Succinate 50 MG Tab.ER PO ONE (09:51)
[2021-09-12 10:44] LABS: ANION GAP 9.9 mEq/L (7-13); CHLORIDE,CL 108 mmol/L (98-107); ESTIMATED GFR > 60; SODIUM,NA 142 mmol/L (136-145)
== END 2021-09-12 13:21 | disposition home or self-care (01) ==
LOC: DL.ED 09:17
DX: I10 Essential (primary) hypertension (principal); E78.00 Pure hypercholesterolemia, unspecified; E03.9 Hypothyroidism, unspecified; Z79.899 Other long term (current) drug therapy
CPT/HCPCS: 36415; 70450; 80053; 81001; 84484; 85025; 85610; 93005; 99284; A9270; 93010

== ENCOUNTER 2024-12-13 18:44 | Inpatient (IN) | payer MEDICARE ==
[2024-12-13] MEDS ORDERED: Sodium Chloride 0.9% 10 ML Syringe FLUSH PRN (18:54)
[2024-12-13] MEDS: fentaNYL 100 MCG/2 ML SDV IVPUSH ONE (19:00)
[2024-12-13] MEDS: Sodium Chloride 0.9% 1,000 ML IV ONE (19:00)
[2024-12-13 19:01] LABS: HEMATOCRIT 34.5 % (37.0-47.0); MEAN CORPUSCULAR HEMOGLOBIN 24.2 pg (27.0-34.0); MEAN CORPUSCULAR HGB CONC 31.9 g/dL (33.0-35.0); MEAN CORPUSCULAR VOLUME 75.8 fL (80-100); PLATELET COUNT,PLT 305 10^3/uL (150-450); RED BLOOD CELL COUNT 4.55 10^6/uL (4.2-5.4); WHITE BLOOD CELL COUNT,WBC 13.3 10^3/uL (5.0-10.0)
[2024-12-13] MEDS: Ondansetron 4 MG/2 ML SDV IVPUSH ONE (19:01)
[2024-12-13 19:03] LABS: BASOPHILS PERCENT AUTO 0.2 % (0.0-1.0); EOSINOPHILS PERCENT AUTO 1.2 % (1.0-3.0); LYMPHOCYTES PERCENT AUTO 16.9 % (20.5-50.1); NEUTROPHILS PERCENT AUTO 72.7 % (42.2-75.2)
[2024-12-13 19:09] LABS: ANION GAP 7.4 mEq/L (7-13)
[2024-12-13 19:10] LABS: CALCIUM 1.19 mmol/l (1.15-1.33); CARBON DIOXIDE,CO2 24 mmol/L (23-30); CHLORIDE,CL 111 mmol/L (98-107); POTASSIUM,K 3.4 mmol/L (3.5-4.5); SODIUM,NA 139 mmol/L (138-146)
[2024-12-13 19:11] LABS: BLOOD UREA NITROGEN,BUN 9 mg/dL (8-26); ESTIMATED GFR 92 mL/min (>=60); GLUCOSE RANDOM 151 mg/dL (74-100)
[2024-12-13 19:26] LABS: C-REACTIVE PROTEIN 3.47 ng/dL (<=0.50); MAGNESIUM 1.8 mg/dL (1.8-2.4)
[2024-12-13] MEDS: Iopamidol 755 Mg/ML 100 ML Bottle IVPUSH ONE (19:30)
[2024-12-13 19:38] LABS: SEG NEUTROPHILS PERCENT MAN 74 % (42-75)
[2024-12-13 19:39] LABS: BAND PERCENT MAN 1 %; EOSINOPHILS PERCENT MAN 2 % (1-3); LYMPHOCYTES PERCENT MAN 17 % (20-50); MONOCYTES PERCENT MAN 6 % (2-8)
[2024-12-13] MEDS: Morphine 4 MG/ML Syringe ONE ×2 (20:23→23:34)
[2024-12-13] MEDS: Morphine 4 MG/ML VIAL IVPUSH ONE ×2 (20:23→22:25)
[2024-12-13] MEDS: Enoxaparin 80 MG/0.8 ML Syringe SUBCUT ONE (22:06)
[2024-12-13] MEDS ORDERED: Polyethylene Glycol 3350 Powder 17 GM Packet PO PRN (23:32)
[2024-12-13] MEDS ORDERED: Sennosides/Docusate Sodium 50-8.6 MG Tab PO PRN (23:32)
[2024-12-13] MEDS ORDERED: Morphine 2 MG/ML SYRINGE IVPUSH PRN (23:32)
[2024-12-13] MEDS ORDERED: Magnesium Hydroxide 400 MG/5 ML Susp 30 ML Cup PO PRN (23:32)
[2024-12-13] MEDS ORDERED: oxyCODONE 5 MG Tab PO PRN (23:32)
[2024-12-14 00:24] LABS: HEMOGLOBIN A1C 6.4 % (<5.7)
[2024-12-14] MEDS: Docusate Sodium 100 MG Cap PO PRN (00:35)
[2024-12-14] MEDS: Ibuprofen 400 MG Tab PO SCH (00:35)
[2024-12-14] MEDS: Acetaminophen 325 MG Tab PO SCH (00:35)
[2024-12-14] MEDS: Levothyroxine 75 MCG Tab PO SCH (06:17)
[2024-12-14] MEDS: Pantoprazole 40 MG Tab.CR PO SCH (06:17)
[2024-12-14 06:33] LABS: BASOPHILS PERCENT AUTO 0.4 % (0.0-1.0); EOSINOPHILS PERCENT AUTO 0.8 % (1.0-3.0); HEMATOCRIT 30.7 % (37.0-47.0); HEMOGLOBIN 9.6 g/dL (12.0-16.0); LYMPHOCYTES PERCENT AUTO 20.5 % (20.5-50.1); MEAN CORPUSCULAR HEMOGLOBIN 24.5 pg (27.0-34.0); MEAN CORPUSCULAR HGB CONC 31.3 g/dL (33.0-35.0); MEAN CORPUSCULAR VOLUME 78.3 fL (80-100); MONOCYTES PERCENT AUTO 8.5 % (2-8); NEUTROPHILS PERCENT AUTO 69.8 % (42.2-75.2); PLATELET COUNT,PLT 264 10^3/uL (150-450); RED BLOOD CELL COUNT 3.92 10^6/uL (4.2-5.4); WHITE BLOOD CELL COUNT,WBC 9.3 10^3/uL (5.0-10.0)
[2024-12-14 06:49] LABS: ANION GAP 11.1 mEq/L (7-13); CALCIUM 8.8 mg/dL (8.5-10.1); CREATININE 0.85 mg/dL (0.55-1.02); EST CRCL DRUG DOSING (CG) 56.83 mL/min; MAGNESIUM 1.9 mg/dL (1.8-2.4); POTASSIUM,K 4.1 mmol/L (3.5-5.1)
[2024-12-14] MEDS: Simvastatin 10 MG Tab PO SCH (08:42)
[2024-12-14] MEDS: Magnesium Oxide 400 MG Tab PO SCH (08:42)
[2024-12-14] MEDS: Aspirin 81 MG Tab.EC PO SCH (08:43)
[2024-12-14] MEDS: amLODIPine 5 MG Tab PO SCH (08:43)
[2024-12-14] MEDS: Potassium Chloride 10 MEQ Tab.ER PO SCH (08:44)
[2024-12-14] MEDS: Metoprolol Succinate 50 MG Tab.ER PO SCH (09:01)
[2024-12-14] MEDS: Enoxaparin 100 MG/1 ML Syringe SUBCUT SCH (10:31)
[2024-12-15 06:52] LABS: BASOPHILS PERCENT AUTO 0.5 % (0.0-1.0); EOSINOPHILS PERCENT AUTO 2.4 % (1.0-3.0); HEMOGLOBIN 9.4 g/dL (12.0-16.0); LYMPHOCYTES PERCENT AUTO 16.8 % (20.5-50.1); MEAN CORPUSCULAR HEMOGLOBIN 23.6 pg (27.0-34.0); MEAN CORPUSCULAR HGB CONC 30.3 g/dL (33.0-35.0); MEAN CORPUSCULAR VOLUME 77.9 fL (80-100); MONOCYTES PERCENT AUTO 8.3 % (2-8); PLATELET COUNT,PLT 246 10^3/uL (150-450); RED BLOOD CELL COUNT 3.98 10^6/uL (4.2-5.4); WHITE BLOOD CELL COUNT,WBC 5.8 10^3/uL (5.0-10.0)
[2024-12-15 07:47] LABS: PERCENT FE SATURATION 5.4 % (20.0-50.0)
[2024-12-15 07:50] LABS: ALBUMIN 2.5 g/dL (3.4-5.0); BILIRUBIN TOTAL 0.4 mg/dL (0.2-1.0); BUN/CREATININE RATIO 9.3 (No establ ref range); C-REACTIVE PROTEIN 4.37 ng/dL (<=0.50); CALCIUM 8.5 mg/dL (8.5-10.1); CREATININE 0.86 mg/dL (0.55-1.02); EST CRCL DRUG DOSING (CG) 56.17 mL/min; PROTEIN TOTAL,TP 5.9 g/dL (6.4-8.2)
[2024-12-15 07:54] LABS: A/G RATIO 0.74
[2024-12-15 08:07] VITALS: PULSE 67
[2024-12-15 08:14] LABS: FOLIC ACID 16.7 ng/mL (8.6-58.9)
[2024-12-15 09:13] VITALS: BP 118/61
[2024-12-15] MEDS ORDERED: Ferrous Sulfate 325 MG Tab PO SCH (21:00)
== END 2024-12-15 12:45 | disposition home or self-care (01) | DRG 299 ==
LOC: DL.ED 18:44 → UNDOADMOB 22:13 → DL.MS 22:13 → EEVIPCON 22:13 → OBSVTOIN 12-14 16:02
PROVIDERS: ADMIT Student in an Organized Health Care Education/Training Program; ATTEND Student in an Organized Health Care Education/Training Program
DX: I82.442 Acute embolism and thrombosis of left tibial vein (principal); I26.99 Other pulmonary embolism without acute cor pulmonale; J96.01 Acute respiratory failure with hypoxia; I10 Essential (primary) hypertension; E78.00 Pure hypercholesterolemia, unspecified; G89.29 Other chronic pain; M54.2 Cervicalgia; R51.9 Headache, unspecified; E89.0 Postprocedural hypothyroidism; E87.6 Hypokalemia; E83.51 Hypocalcemia; R73.9 Hyperglycemia, unspecified; D50.9 Iron deficiency anemia, unspecified; R92.8 Other abnormal and inconclusive findings on diagnostic imaging of breast; Z90.12 Acquired absence of left breast and nipple; Z79.899 Other long term (current) drug therapy; Z87.81 Personal history of (healed) traumatic fracture; Z79.82 Long term (current) use of aspirin; Z86.718 Personal history of other venous thrombosis and embolism; Z90.11 Acquired absence of right breast and nipple
CPT/HCPCS: 36415; 71275; 80048; 80053; 82607; 82728; 82746; 83036; 83540; 83550; 83735; 84484; 85025; 85379; 85610; 85730; 86140; 93005; 93010; 93971; 96372; 96374; 96375; 96376; 99223; 99232; 99238; 99285; 99285-25; A9270-GY; G0378; J1650; J2270; J2405; J3010; J7030; Q9967

== ENCOUNTER 2025-03-04 05:23 | Day surgery (SDC) | payer MEDICARE ==
[2025-03-04] MEDS ORDERED: Lactated Ringers 1,000 ML IV ONE (05:24)
[2025-03-04] MEDS ORDERED: Propofol 200 MG/20 ML SDV IV ONE (05:24)
[2025-03-04] MEDS ORDERED: Propofol 200 MG/20 ML SDV ONE (05:43)
[2025-03-04] MEDS: Lactated Ringers 1,000 ML IV SCH (06:00)
[2025-03-04 07:54] VITALS: BP 135/84; PULSE 55
== END 2025-03-04 08:14 | disposition home or self-care (01) ==
LOC: DL.ENDO 05:23
PROVIDERS: ATTEND Internal Medicine Gastroenterology
DX: K29.50 Unspecified chronic gastritis without bleeding (principal); K31.89 Other diseases of stomach and duodenum; D50.9 Iron deficiency anemia, unspecified; E03.9 Hypothyroidism, unspecified; I26.99 Other pulmonary embolism without acute cor pulmonale; I10 Essential (primary) hypertension; E78.5 Hyperlipidemia, unspecified; Z79.01 Long term (current) use of anticoagulants
CPT/HCPCS: 00731; 88305; 88342; 99100; J2003; J2704; J7120